=== PATIENT | female | born 1955 | race Caucasian/White ===

== ENCOUNTER → 2018-08-14 | Outpatient (CLI) | payer BC ==
[~2018-08-14] MED LIST: AMBIEN 10MG10 MG PO; ASPIRIN 81M81 MG/TA2 PO; COZAAR100 MG PO; FERROUS SU325 MG/TAB PO; PROTONIX 40MG T40 MG PO
== END ==
LOC: COL.PUL 07-23 11:30
DX: C34.11 Malignant neoplasm of upper lobe, right bronchus or lung (principal); I10 Essential (primary) hypertension

== ENCOUNTER 2020-12-12 10:00 | Inpatient (IN) | payer MEDICARE, MEDICAID ==
[~2020-12-12] VITALS: Ht 162.6 cm; Wt 56.8 kg
[2020-12-12] MEDS ORDERED: K-DUR 10 MEQ T10 MEQ PO (11:24)
[2020-12-12 11:33] LABS: BASO % 0.5 % (0.0-2.0); EOS # 0.1 (0.0-0.7); EOS % 1.1 % (0-4.0); GRAN # 3.2 (1.4-6.5); GRAN % 72.8 % (42.2-75.2); HEMATOCRIT 46.6 % (37.0-47.0); HEMOGLOBIN 14.9 g/dl (12.5-16.0); LYMPH # 0.7 (1.2-3.4); LYMPH % 15.9 % (20.0-51.0); MEAN CELL VOLUME 95 fl (80.0-100.0); MEAN CORPUSCULAR HEMOGLOBIN 31 pg (27.0-31.0); MEAN CORPUSCULAR HGB CONC 32 g/dl (33.0-37.0); MEAN PLATELET VOLUME 10.8 fl (7.4-10.4); MONO # 0.4 (0.1-0.6); MONO % 9.5 % (1.7-9.3); PLATELET COUNT 181 K/mm3 (130-400); RED BLOOD COUNT 4.89 M/mm3 (4.10-5.30); REDCELL DISTRIBUTION WIDTH-CV 15.1 % (11.5-14.5)
[2020-12-12 11:48] LABS: PROTHROMBIN TIME 11.3 SECONDS (9.7-12.8)
[2020-12-12 11:55] LABS: ALANINE AMINOTRANSFERASE 13 U/L (4-34); ALBUMIN 4.3 gm/dL (3.5-5.0); ALKALINE PHOSPHATASE 101 U/L (50-136); ANION GAP 8 mmol/L (7-16); AST,SGOT 21 U/L (15-37); BILIRUBIN,TOTAL 0.5 mg/dL (0.0-1.0); BLOOD UREA NITROGEN 11 mg/dL (7-17); CALCIUM 9.8 mg/dL (8.4-10.2); CARBON DIOXIDE 24 mmol/L (22-30); CHLORIDE 108 mmol/L (98-107); CREATININE, serum 0.88 (0.52-1.25); GLUCOSE 121 mg/dL (74-106); POTASSIUM 4.6 mmol/L (3.4-5.0); SODIUM 140 mmol/L (137-145); TOTAL PROTEIN 7.4 gm/dL (6.4-8.2)
[2020-12-12 12:07] LABS: TROPONIN-I < 0.012 ng/mL (0.000-0.035)
[2020-12-12 13:05] LABS: PH 5 (5-8); SQUAMOUS EPITHELIAL None Seen /hpf; URINE APPEARANCE Clear; URINE BACTERIA None Seen /hpf; URINE BILIRUBIN Negative (NEGATIVE); URINE BLOOD Negative (NEGATIVE); URINE COLOR Straw; URINE GLUCOSE Negative (NEGATIVE); URINE KETONE Negative (NEGATIVE); URINE LEUKOCYTE ESTERASE Negative (NEGATIVE); URINE NITRATE Negative (NEGATIVE); URINE PROTEIN(semi-quant) Negative (NEGATIVE); URINE UROBILINOGEN Negative (NEGATIVE); URINE WBC 0-2 /hpf
[2020-12-12 13:08] LABS: COLLECTION METHOD CLEAN CATCH
[2020-12-12 20:30] VITALS: BP 130/77; PULSE 93; TEMP 97.9
--- NOTE | 2020-12-12 20:30 | NUR ---
Received patient from ED. She is alert and oriented. She has some slurred speech. Her left upper and lower extremities have a normal strength. Her right upper and lower extremities are weak. She is on room air. She has INT on left and right hand. Her lungs are clear. She denies pain. Call light within reach.
[2020-12-12 23:26] VITALS: BP 127/75; PULSE 77; TEMP 97.7
--- NOTE | 2020-12-12 23:30 | NUR ---
Informed patient regarding procedures to be done tomorrow which is MRI and EEG. Instructed her to be NPO 4 hours before the procedure, will start patient on NPO at 4am. She states she had MRI before and she was scared about it. She informed the ED doctor and says that they will put an order for anxiety medicine before her procedure. No orders noted for that. Informed Ernestina HELMS via phone call regarding patient's request.
[2020-12-13 03:37] VITALS: BP 152/81; PULSE 87; TEMP 98
--- NOTE | 2020-12-13 06:06 | NUR ---
Patient still with right side weakness and slurred speech. She has unsteady gait. She is one assist to bedside commode. She denies pain. Informed her an Ativan was already ordered if she wants one prior her MRI.
[2020-12-13 07:06] VITALS: BP 152/84; PULSE 81; TEMP 97.7
--- NOTE | 2020-12-13 07:10 | NUR ---
Report with STEPHANIE Caballero. Pt sitting up in bed, awake and alert, denies needs at this time. Call light in reach.
--- NOTE | 2020-12-13 07:24 | NUR ---
Assessment complete. Pt. resting in bed watching TV. Pt is AOX4, teleemetry on. Right sided drift RE, equal velvet cutter strength and pedal strength. CMS WNL. Bilateral UL inspirtory wheezing, RML rhonchi, diminished bilateral bases. R&L UE INT no erythema or swelling.
[2020-12-13 07:35] LABS: BASO % 0.6 % (0.0-2.0); EOS # 0.1 (0.0-0.7); EOS % 3.1 % (0-4.0); GRAN # 2.1 (1.4-6.5); GRAN % 58.9 % (42.2-75.2); HEMATOCRIT 46.7 % (37.0-47.0); LYMPH # 0.9 (1.2-3.4); MEAN CELL VOLUME 94 fl (80.0-100.0); MEAN CORPUSCULAR HEMOGLOBIN 30 pg (27.0-31.0); MEAN CORPUSCULAR HGB CONC 32 g/dl (33.0-37.0); MEAN PLATELET VOLUME 11.7 fl (7.4-10.4); MONO # 0.5 (0.1-0.6); MONO % 13.1 % (1.7-9.3); PLATELET COUNT 183 K/mm3 (130-400); RED BLOOD COUNT 4.95 M/mm3 (4.10-5.30); REDCELL DISTRIBUTION WIDTH-CV 15.4 % (11.5-14.5)
[2020-12-13 07:56] LABS: CALCIUM 9.5 mg/dL (8.4-10.2); CHOLESTEROL RISK RATIO 6.3; CREATININE, serum 0.87 (0.52-1.25); POTASSIUM 4.1 mmol/L (3.4-5.0)
--- NOTE | 2020-12-13 09:54 | NUR ---
Telemetry removed and pt to MRI for testing via WC.
[2020-12-13 10:58] VITALS: BP 146/86; PULSE 95; TEMP 98
[2020-12-13 15:08] VITALS: BP 141/84; PULSE 95; TEMP 96.8
--- NOTE | 2020-12-13 18:59 | NUR ---
Report with STEPHANIE Caballero. Pt sitting up in bed, cup of ice provided per request, denies further needs. Call light in reach.
[2020-12-13 19:01] VITALS: BP 156/84; PULSE 89; TEMP 97.6
--- NOTE | 2020-12-13 19:03 | NUR ---
Received report from Tameka. Patient awake in bed. Repositioned her. Call light within reach. Bed alarm on.
--- NOTE | 2020-12-13 19:10 | NUR ---
Received report from Tameka. Patient awake in bed. Denies needs at this time. Repositioned patient in bed.
[2020-12-13 22:55] VITALS: BP 135/83; PULSE 79; TEMP 97.6
[2020-12-14 04:19] VITALS: BP 140/88; PULSE 91; TEMP 97.6
--- NOTE | 2020-12-14 06:18 | NUR ---
Assisted patient couple times to the bathroom with gait belt. She has unsteady gait. Still with weakness on her right side. She denies pain. She reports she was able to sleep.
[2020-12-14 06:50] LABS: BASO % 0.5 % (0.0-2.0); EOS # 0.1 (0.0-0.7); EOS % 3.1 % (0-4.0); GRAN # 2.1 (1.4-6.5); GRAN % 54.8 % (42.2-75.2); HEMATOCRIT 45.6 % (37.0-47.0); HEMOGLOBIN 14.8 g/dl (12.5-16.0); LYMPH # 1.1 (1.2-3.4); LYMPH % 29.1 % (20.0-51.0); MEAN CELL VOLUME 93 fl (80.0-100.0); MEAN CORPUSCULAR HEMOGLOBIN 30 pg (27.0-31.0); MEAN CORPUSCULAR HGB CONC 33 g/dl (33.0-37.0); MEAN PLATELET VOLUME 11.6 fl (7.4-10.4); MONO # 0.5 (0.1-0.6); MONO % 12.2 % (1.7-9.3); PLATELET COUNT 190 K/mm3 (130-400); RED BLOOD COUNT 4.89 M/mm3 (4.10-5.30)
[2020-12-14 07:00] LABS: CREATININE, serum 0.91 (0.52-1.25); POTASSIUM 3.9 mmol/L (3.4-5.0)
--- NOTE | 2020-12-14 07:10 | NUR ---
Pt doing well this morning. She stated that she slept well last night due to sleeping aid. No pain complaints. Assisted her to the restroom. She did pretty well, slow with moving the right leg. She states that she is doing better. No other needs, will continue to monitor
[2020-12-14 07:36] VITALS: BP 150/93; PULSE 96; TEMP 97.5
--- NOTE | 2020-12-14 10:38 | NUR ---
Pt has worked with therapy and got cleaned up with the help of therapy. She is currently sitting up in the chair. Plans to go to [facility] today or tomorrow. No pain complaints, will continue to monitor
--- NOTE | 2020-12-14 10:57 | NUR ---
An IPR consult was ordered. Aminata, IPR Director, reports that they are able to accept the patient tomorrow, 12/15. VASU met with the patient to complete intake. The patient lives alone in [place]. She states that her daughter, Demetri Fisher (ph#[phone]), lives four miles away from her. She reports independence with ADLs before hospitalization and has no DME. The patient's PCP is Dr. Britta Tanner and she receives her medications from [facility]. She reports occasional difficulties affording her meds. She states that she lives off her social security. SW discussed applying for Medicaid. The patient was interested in this. SW consulted financial counselor, Marcia. The patient does not have a DPOA-HC, but she was interested in completing one. VASU provided the form. The patient designated her daughter, Demetri, and her son, Rey (ph#[phone]), as the alternate. VASU and diabetes specialist, Leti, witnessed the patient's signature. The patient was provided with the original and some copies. SW placed a copy in the patient's chart. PT is recommending IPR and IPR Director has discussed acceptance with the patient. VASU followed up with the patient about IPR. The patient is agreeable to going to IPR tomorrow. VASU attempted to contact Demetri. SW left her a voicemail. SW to continue to follow.
--- NOTE | 2020-12-14 11:58 | NUR ---
First visit from the piano accompanist. No needs right now.
[2020-12-14 12:14] VITALS: BP 154/91; PULSE 117; TEMP 98.1
--- NOTE | 2020-12-14 14:59 | NUR ---
Pt resting wih eyes closed, even non labored breathing
[2020-12-14] MEDS ORDERED: ASPIRIN E.C. 8181 MG PO (16:06)
[2020-12-14] MEDS ORDERED: LIPITOR 40MG TA40 MG PO (16:06)
[2020-12-14] MEDS ORDERED: MELATIN 3 MG-11 TAB PO (16:09)
[2020-12-14 16:19] VITALS: BP 128/83; PULSE 96; TEMP 98.3
[2020-12-14 19:11] VITALS: BP 169/93; PULSE 92; TEMP 97.7
--- NOTE | 2020-12-14 20:30 | NUR ---
Initial shift assessment done- denies pain, states she feels like she is getting much stronger. Still has some slurred speech and some right sided weakness- patient states it is much better. Tele on. INT x2.
[2020-12-14 23:02] VITALS: BP 147/90; PULSE 85; TEMP 97.4
[2020-12-15 03:13] VITALS: BP 152/98; PULSE 98; TEMP 97.7
--- NOTE | 2020-12-15 05:17 | NUR ---
Quiet night- no requests, VSS
[2020-12-15 07:07] LABS: BASO % 0.4 % (0.0-2.0); EOS # 0.1 (0.0-0.7); EOS % 1.2 % (0-4.0); GRAN # 3.3 (1.4-6.5); GRAN % 66.3 % (42.2-75.2); HEMATOCRIT 50.4 % (37.0-47.0); HEMOGLOBIN 16.3 g/dl (12.5-16.0); LYMPH # 1.1 (1.2-3.4); LYMPH % 22.6 % (20.0-51.0); MEAN CELL VOLUME 94 fl (80.0-100.0); MEAN CORPUSCULAR HEMOGLOBIN 30 pg (27.0-31.0); MEAN CORPUSCULAR HGB CONC 32 g/dl (33.0-37.0); MONO # 0.5 (0.1-0.6); MONO % 9.1 % (1.7-9.3); PLATELET COUNT 200 K/mm3 (130-400); RED BLOOD COUNT 5.36 M/mm3 (4.10-5.30)
[2020-12-15 07:15] LABS: CALCIUM 10.5 mg/dL (8.4-10.2); CREATININE, serum 0.93 (0.52-1.25); POTASSIUM 4.2 mmol/L (3.4-5.0)
[2020-12-15 07:38] VITALS: BP 171/84; PULSE 100; TEMP 97.5
--- NOTE | 2020-12-15 08:40 | NUR ---
Pt assessment complete. Pt is laying in bed upon entry, she is A/O x4. Her breathing is even and unlabored on RA. Pt denies SOB. NO pain this am. Pt does have some lag in R arm and lag, but still strong. POC discussed with patient. Call light within reach.
[2020-12-15 09:15] VITALS: BP 171/84; PULSE 100; TEMP 97.5
--- NOTE | 2020-12-15 09:29 | NUR ---
The patient is to discharge today, 12/15, to [facility] [place]. SW contacted and updated the patient's daughter, Demetri. Demetri was agreeable to the plan. No additional needs at this time.
--- NOTE | 2020-12-15 10:35 | NUR ---
Bilateral arm IV's dc'd catheter tips intact. Pt wheeled down to IPR at this time.
== END 2020-12-15 10:35 | DRG 65 ==
LOC: COL.ER 10:00 → MEDICAL 16:31 → EDBEDREQ 18:24 → MEDICAL 23:00
PROVIDERS: Nurse Practitioner Primary Care; Physician Assistant; ADMIT Hospitalist
DX: I63.89 Other cerebral infarction (principal); I16.1 Hypertensive emergency; G81.91 Hemiplegia, unspecified affecting right dominant side; I10 Essential (primary) hypertension; F17.210 Nicotine dependence, cigarettes, uncomplicated; Z90.710 Acquired absence of both cervix and uterus; Z87.898 Personal history of other specified conditions
CPT/HCPCS: 99222-AI; 99232-AI; 99239; A9585; J1650; J2060; Q9967

== ENCOUNTER 2020-12-15 08:48 | Inpatient (IN) | payer MEDICARE, MEDICAID ==
[~2020-12-15] VITALS: Ht 162.6 cm; Wt 60.2 kg
[~2020-12-15 08:48] MED LIST changes: +ASPIRIN E.C. 8181 MG PO; +K-DUR 10 MEQ T10 MEQ PO; +LIPITOR 40MG TA40 MG PO; +MELATIN 3 MG-11 TAB PO
[2020-12-15 16:49] VITALS: BP 128/88; PULSE 98; TEMP 98
[2020-12-15 16:51] VITALS: BP 128/88; PULSE 98; TEMP 98
--- NOTE | 2020-12-15 19:45 | NUR ---
PT TRANSPORTED FROM MEDICAL VIA BY MEDICAL STAFF TO ROOM 340 AROUND 1040. WAS ABLE TO WORK WITH OT AND PT TODAY. ASSESSMENTS DONE, BIMS WILL BE COMPLETED BY ST, ADMISSION CONSENT AND OTHER PAPERWORK SIGNED. PT ORIENTED TO UNIT BY RN AND RAILROAD DESIGN CONSULTANT, DENIED PAIN THIS SHIFT. NO SIGNIFICANT RT SIDED WEAKNESS NOTED UPON ASSESSMENT. PT TO TRANSFER 1 ASSIST WITH GAIT BELT AND WALKER.
--- NOTE | 2020-12-15 20:45 | NUR ---
PT RESTING IN BED. DENIES ANY NEEDS. END OF SHIFT REPORT RECEIVED FROM DAY SHIFT NURSE.
[2020-12-16 04:51] VITALS: BP 137/84; PULSE 97; TEMP 97.7
--- NOTE | 2020-12-16 08:25 | NUR ---
PT WITH SOME ANXIETY DURING THE EVENING. REQUEST AND GIVEN A FAN. VS MONITORED AND ALL WITHIN NORMAL RANGE. NICOTINE PATCH 21MCG APPLIED TO RIGHT UPPER ARM. VOMITED ALL OVER BED AND FLOOR. STATES IT JUST CAME ON. RECEIVED ORDER FOR ZOFRAN 4MG AND GIVEN. SLEPT MOST OF THE NIGHT. AMBULATES WITHOUT WALKER BUT WITH GAIT BELT AND HAS STEADY GAIT. TAKES PO MEDS WITH NO PROBLEMS. FEELS BETTER THIS AM. CALL LIGHT IN REACH. BED ALARM ON.
--- NOTE | 2020-12-16 12:13 | NUR ---
Please see intake conducted 12/14/20 by CC. Patient was sent from [facility] to [facility]
--- NOTE | 2020-12-16 14:03 | NUR ---
Patient resting in bed call light in reach and bed alarm set. Patient was a one person transfer to the toilet.
[2020-12-16 15:06] VITALS: BP 124/77; PULSE 87; TEMP 98
--- NOTE | 2020-12-16 17:35 | NUR ---
Patient attended therapy this morning. Patient tolerated diet well this shift. Denies questions at this time. Tolerating the Nicoderm patch, but has requested that it be removed at HS due to it causing her anxiety and not being able to sleep well. This will be communicated to the night nurse. Patient currently resting in bed, call light in reach and bed alarm set. She is eating her supper.
--- NOTE | 2020-12-17 05:24 | NUR ---
PT IN BED. NO N/V. TYLENOL FOR GENERAL DISCOMFORT.
[2020-12-17 06:11] VITALS: BP 153/86; PULSE 102; TEMP 97.6
--- NOTE | 2020-12-17 07:55 | NUR ---
Patient resting in bed, tolerated breakfast well, has call light in reach and bed alarm set. Will continue to monitor.
[2020-12-17 14:43] VITALS: BP 142/86; PULSE 84; TEMP 98.1
--- NOTE | 2020-12-17 16:55 | NUR ---
Patient refused to change clothes today, but did wash up and do her own oral hygiene this morning. Patient uses the call light appropriatly. Patient had complained about her mattress having a dip in it. Bed was exchanged out and egg crate cushion applied to it. Patient has no more complaints about the bed thus far. She has been in a pleasent mood this shift. Currently she is resting in bed, call light in reach and bed alarm set.
--- NOTE | 2020-12-17 19:21 | NUR ---
RECEIVED CHANGE OF SHIFT REPORT FROM DAY SHIFT NURSE.
--- NOTE | 2020-12-17 20:50 | NUR ---
DENIES CHEST PAIN/SOA/NAUSEA AT THIS TIME. BED ALARM ON WHEN IN BED. UP WITH GAITBELT AND STAFF SBA WHEN UP TO BATHROOM. DENIES ANY COMPLAINTS AT THIS TIME.
[2020-12-18 05:51] VITALS: BP 146/93; PULSE 106; TEMP 98.1
--- NOTE | 2020-12-18 07:03 | NUR ---
CHANGE OF SHIFT REPORT GIVEN TO DAY SHIFT NURSE, BOB RN AND STUDENT NURSE.
--- NOTE | 2020-12-18 11:13 | NUR ---
SW met with the patient to introduce oneself and to follow up after the weekend. The patient states that she is doing well. She reports that she does not have prescription coverage and may need assistance with her meds upon discharge. The patient is interested in applying for Medicaid. This SW consulted Financial Counselor, Marcia, during her acute stay. SW to follow up with Marcia. The patient lives alone in [place]. Her daughter, Demetri Fisher/[facility]- (ph#[phone]), lives four miles away from her. Her PCP is Dr. Britta Tanner and she receives her medications from [facility] She does not have any DME. SW to continue to follow.
--- NOTE | 2020-12-18 12:17 | NUR ---
Patient sitting up in recliner eating lunch. No further needs at this time.
--- NOTE | 2020-12-18 13:34 | NUR ---
Admission QIM scores were reviewed by the team. Code of 6 chosen for putting on/taking off footwear was determined by team discussion to be the most usual performance for this patient during the assessment period. Code of 3 chosen for walk 10 feet was determined by team discussion to be the most usual performance for this patient during the assessment period.--Aminata Kaur, PD
--- NOTE | 2020-12-18 14:59 | NUR ---
Patient states she would like something to help her have a BM, Miralax given at this time.
[2020-12-18 15:20] VITALS: BP 138/85; PULSE 95; TEMP 97.9
--- NOTE | 2020-12-18 18:03 | NUR ---
Patient doing well throughout the day. Minimal needs. Has been up multiple times to restroom with SBA. Denies pain or needs. Will report off to game designer.
--- NOTE | 2020-12-18 19:15 | NUR ---
RECEIVED CHANGE OF SHIFT REPORT FROM DAY SHIFT NURSE.
--- NOTE | 2020-12-18 20:00 | NUR ---
DENIES CHEST PAIN/SOA/NAUSEA AT THIS TIME. DENIES PAIN/NUMBNESS OR TINGLING TO EXTREMITIES. GAIT STEADY, NO WEAKNESS TO EITHER SIDE OF BODY. SPEECH CLEAR AND APPROPROPRIATE. DENIES ANY NEEDS OR CONCERNS AT THIS TIME.
[2020-12-19 04:43] VITALS: BP 146/85; PULSE 97; TEMP 97.9
--- NOTE | 2020-12-19 07:05 | NUR ---
CHANGE OF SHIFT REPORT GIVEN TO DAY SHIFT NURSE, ROBINSON BROWN.
--- NOTE | 2020-12-19 07:14 | NUR ---
PT SLEEPING IN BED AT REPORT. ASSISTED TO BATHROOM THIS AM.
--- NOTE | 2020-12-19 13:03 | NUR ---
VASU followed up with Marcia, financial counselor, about the Medicaid dora. Marcia reports that she still needs to complete the application with the patient.
--- NOTE | 2020-12-19 13:38 | NUR ---
VASU contacted the patient's daughter, Demetri, to discuss getting a patient/family meeting set up. A patient/family meeting was scheduled for tomorrow at 1300. VASU informed IPR Director.
[2020-12-19 17:35] VITALS: BP 139/70; PULSE 95; TEMP 97.7
--- NOTE | 2020-12-19 18:10 | NUR ---
PT UP TO URINATE FREQUENTLY. NO COMPLAINTS OR ISSUES.
--- NOTE | 2020-12-19 19:30 | NUR ---
DENIES CHEST PAIN/SOA/NAUSEA AT THIS TIME. BED ALARMON WHEN IN BED. OBSERVED NO FACIAL DROOPING, DENIES WEAKNESS TO EITHER SIDE OF HER BODY.
--- NOTE | 2020-12-19 19:30 | NUR ---
RECEIVED CHANGE OF SHIFT REPORT FROM DAY SHIFT NURSE.
[2020-12-20 05:11] VITALS: BP 127/83; PULSE 91; TEMP 97.3
--- NOTE | 2020-12-20 07:18 | NUR ---
CHANGE OF SHIFT REPORT GIVEN TO DAY SHIFT NURSE, IVY BROWN.
--- NOTE | 2020-12-20 08:01 | NUR ---
Patient resting in bed, call light in reach and bed alarm set watching TV. Patient reports 3/10 pain to right jaw line that is an old injury and when it is wet outside it causes her pain. She was given prn tylenol this morning. Will continue to monitor.
--- NOTE | 2020-12-20 09:39 | NUR ---
Initial viist; Patient thanked Radiology Administrator for looking in on her and wishing her well though declined spiritual care.
--- NOTE | 2020-12-20 14:51 | NUR ---
Patient attended all therapies today and was made Independent in her room without a walker this afternoon. Patient's son and daughter both attended her family meeting this afternoon. Patient denies questions at this time.
--- NOTE | 2020-12-20 15:30 | NUR ---
VASU attended the patient/family meeting. The patient's daughter (Demetri) and son (Rey) were present. Also present was IPR Director, PT, OT, and ST. IPR Director started by explaining the purpose of the meeting. PT/OT/ST discussed the patient's progress so far and how a tentative d/c date has been set for this Friday, 12/22, with outpatient PT/OT/ST. The patient and her family were agreeable to the plan. The patient states that she will need assistance with her meds. SW will need to escobedo her meds at her preferred pharmacy, [facility]. The team answered all questions. VASU then followed up with the patient to present and review the IPR Team Conference Note. The patient would like to receive the outpatient therapy at [facility]. VASU contacted [facility] and secured the patient an outpatient PT appointment on 12/26 at 0900, ST on 12/26 at 1000, and OT on 12/26 at 1100. VASU will need to fax the patient's d/c orders and therapy notes to [facility] outpatient therapy at [phone]. VASU notified the patient's RN of the appointments.
[2020-12-20 15:40] VITALS: BP 129/82; PULSE 113; TEMP 97.1
--- NOTE | 2020-12-20 15:44 | NUR ---
Call placed to Ruth Reddy APRN for order for Tums. See one time order for Tumes.
--- NOTE | 2020-12-20 15:56 | NUR ---
Patient reporting indigestion following eating her pizza. VSS: BP 129/82, T 97.1, P 113, R 18. No chest pain reported. Call placed to Ruth HELMS with one time order for Tums. See EMR.
--- NOTE | 2020-12-20 15:58 | NUR ---
Patient reported dryness in the outer portion of both ears. She has had this problem for some time now. It just has a flare up at this time. See new orders for hydrocortisone cream.
--- NOTE | 2020-12-20 18:58 | NUR ---
RECEIVED CHANGE OF SHIFT REPORT FROM DAY SHIFT NURSE.
--- NOTE | 2020-12-20 20:00 | NUR ---
DENIES CHEST PAIN/SOA/NAUSEA AT THIS TIME. PATIENT UP INDEPENDENTLY IN ROOM WITH NO REPORTED PROBLEMS.
[2020-12-21 05:35] VITALS: BP 130/85; PULSE 100; TEMP 97.6
--- NOTE | 2020-12-21 07:13 | NUR ---
CHANGE OF SHIFT REPORT GIVEN TO DAY SHIFT NURSE, IVY BROWN.
--- NOTE | 2020-12-21 14:34 | NUR ---
Financial Counseling is in with the patient to complete a Medicaid application.
[2020-12-21 18:22] VITALS: BP 130/79; PULSE 97; TEMP 97.2
--- NOTE | 2020-12-21 20:31 | NUR ---
Patient attended all therapies today. She tolerated all her meals this shift. Denied pain. Patient's follow up appointments were made for PCP and Neurology. Patient reported that she wants to continue to use the nicoderm patch upon discharge. Her goal is to quit smoking. Patient tearful this evening reporting that she is just nervous about going home following this stroke. This nurse listened to patient and provided education on smoking sessation and encouragement to continue to gain strength. Patient currently resting in bed, call light in reach and is independent in her room. Reported off to night nurse.
--- NOTE | 2020-12-21 21:00 | NUR ---
PT RESTING IN BED. MOD I IN ROOM. TAKING MELATONIN AND AMBIEN FOR SLEEP. REQUESTED CALL FOR ASSIST IF NEEDED FOR BALANCE. PT AGREED. HAND CLIN TECH EQUAL BILAT. RT FOOT PUSH PULL ALITTLE WEAKER THAN LT. DENIES NEEDS AT THIS TIME. CALL LIGHT IN REACH.
--- NOTE | 2020-12-22 00:57 | NUR ---
WOKE UP. NAUSEATED. SEE MAR FOR ZOFRAN GIVEN.
--- NOTE | 2020-12-22 01:20 | NUR ---
PT REQUESTED TYLENOL FOR LT JAW PAIN.- PT REPORTS THIS IS CHRONIC. SEE MAR. PROVIDED ICE PACK ALSO. DENIES NEW SYMPTOM. NAUSEA RESOLVED WITH ZOFRAN EARLIER.
[2020-12-22 04:48] VITALS: BP 111/54; BP 145/76; PULSE 78; TEMP 97.6
[2020-12-22] MEDS ORDERED: ZOFRAN 4MG T4 MG/TAB PO (09:04)
[2020-12-22] MEDS ORDERED: HYDROCORTISO28.35 GM TP (09:04)
[2020-12-22] MEDS ORDERED: NICODERM C21 MG/PATC TD (09:08)
--- NOTE | 2020-12-22 09:12 | NUR ---
PT RESTING IN BED AT SHIFT REPORT. PT DENIES PAIN THIS AM OTHER THEN MILD IN HER JAW. NO LONGER FEELS NAUSEOUS AFTER ZOFRAN GIVEN EARLY THIS AM.
--- NOTE | 2020-12-22 10:09 | NUR ---
VASU priced the patient's meds at her preferred pharmacy, [facility]. The total was around $53.55. VASU informed the patient. The patient states that she will be able to afford this. VASU also informed her of the dates for the outpatient therapy appointments. The patient states that she scheduled an appointment with her PCP that day and would prefer therapy another day in the afternoon. VASU contacted Elen at [facility] and rescheduled the patient's appointments. PT on 12/28 at 1300, ST on 12/28 at 1400, and OT on 12/28 at 1500. VASU informed the patient and her RN of the new appointments. The patient is to discharge back home today, 12/22, with outpatient PT/OT/ST at [facility]. VASU faxed the patient's d/c orders and therapy notes to [facility] outpatient therapy. VASU presented and read the IM form outloud to the patient. The patient verbalized understanding and gave VASU approval to sign the form on her behalf. VASU provided her with a copy. No additional needs at this time.
--- NOTE | 2020-12-22 12:48 | NUR ---
PT HEALTH SUMMARY, DISHCARGE SUMMARY, AND HOME MEDS PRINTED AND REIEWED WITH PT. STRESSED IMPORTANCE OF FU APPTS. REVIEWED MEDICATIONS, SCRIPTS SENT IN AND CALLED TO PHARMACY FOR LOSARTAN, AND ZOFRAN. BELONGINGS GATHERED BY PT INCLUDING MEDS FROM PHARMACY AND CELL PHONE. PT AMBULATED WITH ELECTRIC POWER LINE REPAIRER TO CAR AND SEATBELTED FOR RIDE HOME. PT DENIED QUESTIONS.
--- NOTE | 2020-12-26 10:45 | NUR ---
Discharged patient called to verify location of her therapies. This nurse called and spoke with VASU Sawyer and she clarified that patient would be going to [facility]. This nurse called Piper and gave her this above information. She voiced understanding.
== END 2020-12-22 12:40 | disposition home or self-care (01) | DRG 57 ==
PROVIDERS: ADMIT Internal Medicine
DX: I69.351 Hemiplegia and hemiparesis following cerebral infarction affecting right dominant side (principal); I16.0 Hypertensive urgency; I10 Essential (primary) hypertension; I69.328 Other speech and language deficits following cerebral infarction; R47.1 Dysarthria and anarthria; G47.00 Insomnia, unspecified; R53.81 Other malaise; F17.210 Nicotine dependence, cigarettes, uncomplicated; Z79.82 Long term (current) use of aspirin; Z85.118 Personal history of other malignant neoplasm of bronchus and lung; Z90.710 Acquired absence of both cervix and uterus
CPT/HCPCS: 99222-AI; 99231-AI; 99232-AI; 99239; J1650